=== PATIENT | male | born 1970 | race Two or more races ===

== ENCOUNTER 2020-10-18 15:46 | Inpatient (IN) | payer OTHER ==
[2020-10-18] VITALS (10 sets, daily range): BP systolic 103–159; BP diastolic 72–106
[~2020-10-18] VITALS: Ht 175.3 cm; Wt 82.1 kg
--- NOTE | 2020-10-18 15:51 | NUR ---
Nurses note Pt comes to the ED with Difficult breathing, using abdominal muscles. Pt report no pass HX. Pt O2 45% in by monitor. Non Rebrether mask place, pt O2 not getting better, provider in room. [address] one in Lt arm and Rt upper arm. Lab samples taken and sent to lab.
[2020-10-18] MEDS ORDERED: Azithromycin 500 MG in NS 275 ML IV ONE (16:00)
[2020-10-18] MEDS ORDERED: cefTRIAXone 1 GM in NS 55 ML IVPB ONE (16:00)
[2020-10-18] MEDS ORDERED: dexAMETHasone 10mg/ml Inj IV ONE (16:00)
--- NOTE | 2020-10-18 16:07 | Emergency Room Report ---
History of Present Illness General Chief Complaint: Dyspnea/Respdistress Source: Patient Present Illness HPI Disclaimer: Please note that this report is being documented using DRAGON technology. This can lead to erroneous entry secondary to incorrect interpretation by the dictating instrument. HPI: 50-year-old male no reported medical issue presents for evaluation of shortness of breath. States has been getting worse for approximately 1 week. Reports cough that is worse at night. Denies fever or chills. Denies chest pain or palpitations. Denies nausea or vomiting or diarrhea. According to his son his breathing was increasingly labored today brought in for evaluation. No other sick contacts noted. No recent COVID-19 testing. Patient is full code. PMH: Denied PSH: Denied Allergies: Denied Social Hx: Denied Allergies: Coded Allergies: No Known Allergies (Unverified , 10/18/20) COVID-19 Screening Contact w/high risk pt: Yes Experienced COVID-19 symptoms?: Yes COVID-19 Testing performed MANAGER CLINICAL RESEARCH: No Nursing Documentation-PMH Hx Diabetes: Yes Review of Systems All Other Systems: negative except mentioned in HPI Physical Exam Vital Signs Date Time Temp Pulse Resp B/P (MAP) Pulse Ox O2 Delivery O2 Flow Rate FiO2 10/18/20 15:51 120 24 150/80 (103) 78 Non-Rebreather 10.0 General: Awake and alert, arrives in respiratory distress HEENT: NC/AT. EOMI. Cardiovascular: Tachycardic Resp: Tachypnea. Increased work of breathing. Bilateral breath sounds. Abdomen: Abdomen is soft, nondistended. Nontender Skin: Intact. No abrasions, laceration or rash over the exposed skin MSK: Normal tone and bulk. Moving all extremities. No obvious deformity. Neuro: Awake and alert. Mentating appropriately. Procedures Critical Care Time Critical Care Time Total critical care time: Approximately 120 minutes Due to a high probability of clinically significant, life threatening deterioration, the patient required the highest level of preparedness to intervene emergently and I personally spent this critical care time directly and personally managing the patient. This critical care time included obtaining a history, examining the patient, pulse oximetry, ordering and reviewing studies, ordering treatments, evaluating response to treatment and updating management plan as needed, frequent reassessment and discussion with other providers as well as arranging for ultimate disposition. This critical to care time was performed to assess and manage the high probability of life-threatening deterioration that could result in multiorgan failure. This critical care time is separate from the separately billable procedures and treating other patients. Cardioversion Cardioversion: Consent: Emergent Indication: V-TACH Response: Sinus Attempts: One Patient Tolerated: Well Complications: None Central Line Central Line : Consent: Emergent Central Line Lumen: triple Maximal Sterile Barrier Tech: yes cap, yes mask, yes sterile gown, yes sterile gloves, yes large sterile sheet, yes hand hygiene, yes chlorhexidine prep Central Line Postion: femoral (R) US Guided Line?: Yes Vessel visualized with U/S: Right Femoral Vein Ultrasound Findings: Collapsible Vessel, Vessel Patent, Visualize vessel puncture Complications: none Central Line Post Position: sutured, good blood return Attempts: One Patient Tolerated: Well Complications: None CPR/Code Blue CPR/Code Blue Narrative Patient bradycardic in PEA. 1 round chest compressions. 1 mg epinephrine and 1 amp of bicarb given. ROSC achieved at first pulse check. Sinus tachycardic rhythm. Intubation Intubation : Consent: Emergent Intubation Method: orotracheal Tube Size (cm): 7.5 Medications: Etomidate, Rocuronium Breath Sounds after Intubation: equal Intubation Complications: no complications Attempts: One Patient Tolerated: Well Complications: None Medical Decision Making Diagnostic Impression: Primary Impression: Pneumonia Additional Impressions: Suspected 2019 novel coronavirus infection Respiratory failure Cardiopulmonary arrest Ventricular fibrillation ER Course 50-year-old male presents for evaluation of shortness of breath. Arrives in respiratory distress hypoxic on room air and nonrebreather. Concern for pneumonia, COVID-19 infection, pneumothorax, PE among others. Patient transition to BiPAP oxygenation improved into the mid 90s. Chest x-ray shows bilateral infiltrates. Concern for COVID-19. Cultures, broad labs drawn. Patient treated empirically with antibiotics and dexamethasone. Respiratory rate and work of breathing worsening. Patient saturating mid 80s. Patient intubated for respiratory failure. Patient went bradycardic during intubation without palpable pulse. CODE BLUE was called. Patient given 1 round of chest compressions and 1 round of epinephrine after which there was a return of spontaneous circulation. X-ray shows endotracheal tube above the kenzie. Admitted to ICU to assigned hospitalist for healthcare plan Dr. Garcia. Family updated. Patient continues to desaturate while on ventilator requiring intermittent bag mask ventilation. Blood pressure dropping. Central line placed by me under ultrasound guidance in the right femoral. Patient on Levophed and dopamine. Patient also having twitch-like movements in his extremities. Ativan given and loaded with Keppra for possible seizures. Family updated. Patient with an episode of ventricular fibrillation with rate into the 180s. Defibrillated 200 J x 1 return to sinus tachycardia. Given amiodarone. Patient transferred to ICU. Sepsis reevaluation: I, Dr. Delonte Woodruff, reevaluated the patient Capillary refill: Less than 2 seconds BP: 118/88 Heart rate: 150s Respiratory rate: 30s Initial Lactate: 7.2 Repeat Lactate: 5.4 Pressors: Levophed, dopamine Laboratory Tests Test 10/18/20 15:54 10/18/20 16:00 Arterial Blood pH 7.363 (7.350-7.450) Arterial Blood Partial Pressure CO2 27.1 mmHg (35.0-45.0) L Arterial Blood Partial Pressure O2 62.3 mmHg (75.0-100.0) L Arterial Blood HCO3 15.1 mmol/L (22.0-26.0) *L Arterial Blood Oxygen Saturation 89.2 % (95-100) *L Arterial Blood Base Excess -8.8 (-2-2) L Yakov Test Positive White Blood Count 12.4 K/UL (4.8-10.8) H Red Blood Count 5.03 M/UL (4.70-6.10) Hemoglobin 14.1 G/DL (14.2-18.0) L Hematocrit 44.9 % (42.0-52.0) Mean Corpuscular Volume 89 FL (80-99) Mean Corpuscular Hemoglobin 28.1 PG (27.0-31.0) Mean Corpuscular Hemoglobin Concent 31.4 G/DL (32.0-36.0) L Red Cell Distribution Width 12.4 % (11.6-14.8) Platelet Count 536 K/UL (150-450) H Mean Platelet Volume 7.0 FL (6.5-10.1) Neutrophils (%) (Auto) 88.4 % (45.0-75.0) H Lymphocytes (%) (Auto) 6.6 % (20.0-45.0) L Monocytes (%) (Auto) 4.5 % (1.0-10.0) Eosinophils (%) (Auto) 0.1 % (0.0-3.0) Basophils (%) (Auto) 0.5 % (0.0-2.0) Prothrombin Time 13.8 SEC (9.30-11.50) H Prothrombin Time INR 1.3 (0.9-1.1) H Activated Partial Thromboplast Time 28 SEC (23-33) D-Dimer 2.41 mg/L FEU (0.00-0.49) H Sodium Level 126 MMOL/L (136-145) L Potassium Level 5.1 MMOL/L (3.5-5.1) Chloride Level 88 MMOL/L (98-107) L Carbon Dioxide Level 17 MMOL/L (21-32) L Anion Gap 21 mmol/L (5-15) H Blood Urea Nitrogen 25 mg/dL (7-18) H Creatinine 1.4 MG/DL (0.55-1.30) H Estimated Glomerular Filtration Rate 53.4 mL/min (>60) Glucose Level 425 MG/DL (74-106) H Lactic Acid Level Pending Calcium Level 8.8 MG/DL (8.5-10.1) Phosphorus Level 5.1 MG/DL (2.5-4.9) H Magnesium Level 1.9 MG/DL (1.8-2.4) Ferritin 726 NG/ML (8-388) H Total Bilirubin 1.2 MG/DL (0.2-1.0) H Direct Bilirubin 0.5 MG/DL (0.0-0.3) H Aspartate Amino Transferase (AST) 31 U/L (15-37) Alanine Aminotransferase (ALT) 15 U/L (12-78) Alkaline Phosphatase 132 U/L (46-116) H Lactate Dehydrogenase 438 U/L (81-234) H Total Creatine Kinase 110 U/L (26-308) Creatine Kinase MB 4.2 NG/ML (0.0-3.6) H Creatine Kinase MB Relative Index 3.8 Troponin I 0.098 ng/mL (0.000-0.056) C-Reactive Protein, Quantitative Pending Pro-B-Type Natriuretic Peptide 74177 pg/mL (0-125) H Total Protein 7.2 G/DL (6.4-8.2) Albumin 2.4 G/DL (3.4-5.0) L Globulin 4.8 g/dL Albumin/Globulin Ratio 0.5 (1.0-2.7) L Lipase 172 U/L (73-393) EKG Diagnostic Results Troponin ordered: Yes When was troponin ordered?: Oct 18, 2020 EKG Time: 15:58 Rate: tachycardiac Rhythm: NSR ST Segments: no acute changes Other Impression Sinus tachycardia, normal axis, normal intervals, no ST segment changes. Rhythm Strip Diag. Results Rhythm Strip Time: 15:58 EP Interpretation: yes Rate: 120s Rhythm: NSR, no PVC's, no ectopy Chest X-Ray Diagnostic Results Chest X-Ray Diagnostic Results : Chest X-Ray Ordered: Yes # of Views/Limited/Complete: 1 View Indication: Shortness of Breath EP Interpretation: Yes PA Xray: Interpretation reviewed Interpretation: no effusion, no pneumothorax, other - Bilateral infiltrates concerning for pneumonia Impression: Other - Bilateral pneumonia Electronically Signed by: Electronically signed by Dr. Delonte Woodruff MD Other X-Ray Diagnostic Results Other X-Ray Diagnostic Results : X-Ray ordered: Post intubation chest x-ray # of Views/Limited Vs Complete: 1 View Indication: Pain EP Interpretation: Yes Interpretation: other - Endotracheal tube above the kenzie. Bilateral airspace disease, NG tube in place Impression: Other - ET tube in appropriate position above kenzie, NG tube in place Electronically Signed by: Electronically signed by Dr. Delonte Woodruff MD Last Vital Signs Date Time Temp Pulse Resp B/P (MAP) Pulse Ox O2 Delivery O2 Flow Rate FiO2 10/18/20 15:51 120 24 150/80 (103) 78 Non-Rebreather 10.0 Disposition: ADMITTED INPATIENT Condition: Critical Scripts No Active Prescriptions or Reported Meds Delonte Woodruff MD Oct 18, 2020 16:07
--- NOTE | 2020-10-18 16:21 | Diagnostic Imaging Report ---
EXAM: XR Chest, 1 View CLINICAL HISTORY: SOB TECHNIQUE: Frontal view of the chest. COMPARISON: 09/10/2007. FINDINGS: Lungs: Diffuse bilateral perihilar airspace opacities consistent with pneumonia. Pleural space: Unremarkable. No pneumothorax. Heart: Cardiomegaly. Mediastinum: Unremarkable. Bones/joints: Degenerative disease of bilateral shoulders. IMPRESSION: Diffuse bilateral pneumonia. Differential diagnosis includes pulmonary edema. Clinical correlation recommended.
[2020-10-18 16:46] LABS: HEMATOCRIT 44.9 % (42.0-52.0); HEMOGLOBIN 14.1 G/DL (14.2-18.0); MEAN CORPUSCULAR VOLUME 89 FL (80-99); PLATELET COUNT 536 K/UL (150-450); RED BLOOD COUNT 5.03 M/UL (4.70-6.10); RED CELL DISTRIBUTION WIDTH 12.4 % (11.6-14.8); WHITE BLOOD COUNT 12.4 K/UL (4.8-10.8)
[2020-10-18 16:47] LABS: LYMPHOCYTES % (AUTO) 6.6 % (20.0-45.0); MONOCYTES % (AUTO) 4.5 % (1.0-10.0); NEUTROPHILS % (AUTO) 88.4 % (45.0-75.0)
[2020-10-18 16:48] LABS: BASOPHILS % (AUTO) 0.5 % (0.0-2.0); EOSINOPHILS % (AUTO) 0.1 % (0.0-3.0)
[2020-10-18 16:53] LABS: INR 1.3 (0.9-1.1)
--- NOTE | 2020-10-18 16:55 | NUR ---
CPR started see code blue sheet
[2020-10-18 17:02] LABS: CALCIUM 8.8 MG/DL (8.5-10.1); CREATININE 1.4 MG/DL (0.55-1.30); POTASSIUM 5.1 MMOL/L (3.5-5.1)
[2020-10-18 17:21] LABS: ALBUMIN 2.4 G/DL (3.4-5.0); ALBUMIN/GLOBULIN RATIO 0.5 (1.0-2.7); BILIRUBIN,TOTAL 1.2 MG/DL (0.2-1.0); CKMB 4.2 NG/ML (0.0-3.6); PHOSPHORUS 5.1 MG/DL (2.5-4.9)
[2020-10-18 17:26] LABS: BILIRUBIN,DIRECT 0.5 MG/DL (0.0-0.3)
--- NOTE | 2020-10-18 18:05 | Cardiac Electrophysiology PN ---
Subjective Subjective [id number] Objective Last 24 Hour Vital Signs Date Time Temp Pulse Resp B/P (MAP) Pulse Ox O2 Delivery O2 Flow Rate FiO2 10/18/20 17:38 122 25 100 10/18/20 16:29 99.0 123 57 130/88 90 Bi-pap 10/18/20 16:29 120 60 Bi-pap 10/18/20 16:13 122 53 95 100 10/18/20 15:51 120 24 150/80 (103) 78 Non-Rebreather 10.0 Laboratory Tests Test 10/18/20 15:54 10/18/20 16:00 Arterial Blood pH 7.363 (7.350-7.450) Arterial Blood Partial Pressure CO2 27.1 mmHg (35.0-45.0) L Arterial Blood Partial Pressure O2 62.3 mmHg (75.0-100.0) L Arterial Blood HCO3 15.1 mmol/L (22.0-26.0) *L Arterial Blood Oxygen Saturation 89.2 % (95-100) *L Arterial Blood Base Excess -8.8 (-2-2) L Yakov Test Positive White Blood Count 12.4 K/UL (4.8-10.8) H Red Blood Count 5.03 M/UL (4.70-6.10) Hemoglobin 14.1 G/DL (14.2-18.0) L Hematocrit 44.9 % (42.0-52.0) Mean Corpuscular Volume 89 FL (80-99) Mean Corpuscular Hemoglobin 28.1 PG (27.0-31.0) Mean Corpuscular Hemoglobin Concent 31.4 G/DL (32.0-36.0) L Red Cell Distribution Width 12.4 % (11.6-14.8) Platelet Count 536 K/UL (150-450) H Mean Platelet Volume 7.0 FL (6.5-10.1) Neutrophils (%) (Auto) 88.4 % (45.0-75.0) H Lymphocytes (%) (Auto) 6.6 % (20.0-45.0) L Monocytes (%) (Auto) 4.5 % (1.0-10.0) Eosinophils (%) (Auto) 0.1 % (0.0-3.0) Basophils (%) (Auto) 0.5 % (0.0-2.0) Prothrombin Time 13.8 SEC (9.30-11.50) H Prothromb Time International Ratio 1.3 (0.9-1.1) H Activated Partial Thromboplast Time 28 SEC (23-33) D-Dimer 2.41 mg/L FEU (0.00-0.49) H Sodium Level 126 MMOL/L (136-145) L Potassium Level 5.1 MMOL/L (3.5-5.1) Chloride Level 88 MMOL/L (98-107) L Carbon Dioxide Level 17 MMOL/L (21-32) L Anion Gap 21 mmol/L (5-15) H Blood Urea Nitrogen 25 mg/dL (7-18) H Creatinine 1.4 MG/DL (0.55-1.30) H Estimat Glomerular Filtration Rate 53.4 mL/min (>60) Glucose Level 425 MG/DL (74-106) H Lactic Acid Level 7.20 mmol/L (0.4-2.0) H Calcium Level 8.8 MG/DL (8.5-10.1) Phosphorus Level 5.1 MG/DL (2.5-4.9) H Magnesium Level 1.9 MG/DL (1.8-2.4) Ferritin 726 NG/ML (8-388) H Total Bilirubin 1.2 MG/DL (0.2-1.0) H Direct Bilirubin 0.5 MG/DL (0.0-0.3) H Aspartate Amino Transf (AST/SGOT) 31 U/L (15-37) Alanine Aminotransferase (ALT/SGPT) 15 U/L (12-78) Alkaline Phosphatase 132 U/L (46-116) H Lactate Dehydrogenase 438 U/L (81-234) H Total Creatine Kinase 110 U/L (26-308) Creatine Kinase MB 4.2 NG/ML (0.0-3.6) H Creatine Kinase MB Relative Index 3.8 Troponin I 0.098 ng/mL (0.000-0.056) C-Reactive Protein, Quantitative 20.2 mg/dL (0.00-0.90) H Pro-B-Type Natriuretic Peptide 23124 pg/mL (0-125) H Total Protein 7.2 G/DL (6.4-8.2) Albumin 2.4 G/DL (3.4-5.0) L Globulin 4.8 g/dL Albumin/Globulin Ratio 0.5 (1.0-2.7) L Lipase 172 U/L (73-393) Arvin Barraza MD Oct 18, 2020 18:05
--- NOTE | 2020-10-18 18:09 | Diagnostic Imaging Report ---
EXAM: XR Chest, 1 View CLINICAL HISTORY: POST-OP TECHNIQUE: Frontal view of the chest. COMPARISON: 10/18/2020. FINDINGS: Limitations: Exam is limited due to decreased penetration technique. Lungs: Diffuse bilateral airspace opacities consistent with pneumonia. Pleural space: Unremarkable. No pneumothorax. Heart: Unremarkable. No cardiomegaly. Mediastinum: Unremarkable. Bones/joints: Unremarkable. Tubes, lines and devices: The endotracheal tube has the tip 4 cm above kenzie. The nasogastric tube has the tip at approximate gastric fundus. Defibrillator patches obscured the left lung base. IMPRESSION: 1. Lines and tubes as described. 2. Diffuse bilateral pneumonia, unchanged in the interval.
[2020-10-18] MEDS ORDERED: DOPamine 400mg/250ml 250 ML IV SCH (18:22)
--- NOTE | 2020-10-18 18:36 | NUR ---
ED Nurse Note: pt in critical condition. O2 sat 44 RA on arrival. pt immediately bedded with & RN at bedside. pt placed on continuous cardiac and O2 monitor. with BiPAP 80% O2 sat. 1654: pt intubated. pt in asystole. opal petty called (see code sheet). Radha Elias RN, [employer] materials engineering technician, RT tech at bedside. CPR compressions started. 1 atropine, 1 epi given. compressions in progress. pt desat to 57%. bagging pt to increase O2. pt intubated with 7.5, 22 at lip. pulse check. pt in sinus tach. 1654: vitals: 167 HR, 41 RR with bagging, O2 sat reading. 1L NS hung per MD verbal order. 1657: 1 amp bicarb in R arm. vitals: 163 HR, 45 RR, 98% O2 sat bagging. 1700: vitals: 153 HR, 33 RR, 98% O2, 159/106 BP. EKG performed: pt rhythm sinus tach. pt placed on ventilator. 170: vitals: 144 HR, 26 RR, desat to 86% O2, 152/95 BP. switched to manual bagging. 1705: vitals: 139 HR, 37 RR, 152/95 BP, 99% O2. 1707: NG tube inserted, R nare, 55cm. 171: vitals: 124 HR, 44 RR, 116/86 BP/ Addendum: 10/18/20 at 1906 by [facility] ED Nurse Note: pt in critical condition. O2 sat 44 RA on arrival. pt immediately bedded with MD & RN at bedside. pt placed on continuous cardiac and O2 monitor. RT at bedside. pt placed on BiPAP 80% O2 sat. RR 50's. crash cart & resuscitation medications at bedside. 1640: pt intubated. 1650: pt pulseless. code blue called (see code sheet). Radha Elias RN, [facility] tech, RT tech at bedside. CPR compressions started. 1655: 1 atropine, 1 epi given. compressions in progress. pt desat to 57%. bagging pt to increase O2. pt intubated with 7.5, 22 at lip. CPR pause. pulse check. pt in sinus tach. 1655: vitals: 167 HR, 41 RR with bagging, O2 sat reading. 1L NS hung per MD verbal order. 1658: 1 amp bicarb in R arm. vitals: 163 HR, 45 RR, 98% O2 sat bagging. 1701: vitals: 153 HR, 33 RR, 98% O2, 159/106 BP. EKG performed: pt rhythm sinus tach. pt placed on ventilator with MD & RT at bedside. 1703: vitals: 144 HR, 26 RR, desat to 86% O2, 152/95 BP. switched to manual bagging. MD aware. 1705: vitals: 139 HR, 37 RR, 152/95 BP, 99% O2. switched to ventilator. 1707: NG tube inserted, R nare, 55cm. 1711: vitals: 124 HR, 44 RR, 116/86 BP, O2 desat 60% on vent. MD informed. pt switched to bagging to improve O2. O2 sat increased to 97%. switched to ventilator. 1713: 2L NS bolus added per MD verbal order. 1719: pt O2 sat decreased to 71% on vent. begin pt bagging. HR 117 sinus tachy. 103/72 BP. MD aware. unable to sustain O2 sat on vent. MD aware. MD at bedside. 1720: 116 HR, 44 RR, 78% O2 with manual bagging, 97/63 BP. bagging pt. MD at bedside. 1729: adjusted tube after chest XR per MD order. O2 sat improved. HR 125, 20RR, O2 99% on vent, 123/88 BP. 1740: 80 lasix given R arm per MD verbal order. vitals: 129/84 BP, 124 HR, 41 RR, 92% O2 on vent. 1758: vent settings adjusted to improve pt O2 sat. TV 500, Rate 30, O2 100% peep 12. vitals 125 HR, O2 92%. RR 30. 116/88 BP. 2 STEM SHAPER, certified pest control technician, ER MD at bedside with RT continuously. 180: bicarb pushed R arm per MD verbal order. HR 121, 30RR, 93% O2 on vent, 96/77. pt desat O2 to 70's. manual bagging to improve pt O2, MD calle aware, attempting to contact family to notify of pt condition. pt unable to sustain O2 sat with ventilator adjustments. RT at bedside continuously and MD aware. 181: 119 HR, 96/57 BP, 83% O2 pt bagged. 182: 115 HR, 66 RR, 81% O2 with bagging, 82/36 BP. 182: pt son at bedside. informed of critical status of pt. ER MD & temperer at bedside with RT, materials engineering technician, 3 STEM SHAPER. ED MD verbal order for dopamine. dopamine initiated. 183: 124 HR, 107/84 HR, O2 90%. pt continuously desatting when attempting to place on vent. pt bagged continuously to improve O2 sat. 184: 109/72 BP. 124 HR, 89% O2. vent settings adjusted. TV 500, Rate 30, Peep 15, O2 100%. 1848: 74/18 BP. HR 113, O2 81% desat on vent, switched to manual bagging. 185: Norepi started at 10 mcg/min per MD verbal order. 80/52 BP. 116 HR. 79% O2. 31 RR. 1912: ativan pushed R arm due to pt having seizure activity. MD at bedside, RT Arnav at bedside, RN at bedside. HR 120, 108/77 BP, 32 RR, 82% O2 on vent. 1919: RN shift change. MD calle at bedside. pt still on continuous cardiac and O2 monitor. RT Arnav at bedside. day & night STEM SHAPER assisting pt. 1939: central line placed R femoral by MD calle with RN at bedside. 1949: pt started seizure activity again. MD notified, verbal order for another 2 ativan. pt started on keppra bolus per MD verbal order. RN & RT at bedside. 2004: vitals: 154 HR, 32 RR, 89% with adjusted vent settings, BP 120/80, 96.4 temporal. vent settings adjusted: 100% O2, TV 450, Peep 15, rate 40. 2035: vitals: 153HR, 128/87 BP, 90% O2 sat, 27 RR. pt still on continuous cardiac & O2 monitor.
[2020-10-18] MEDS ORDERED: Levophed 4mg/4mL Inj IV ONE (18:55)
[2020-10-18] MEDS ORDERED: LORazepam Inj 2mg/ml 1ml ONE ×3 (19:13→20:47)
[2020-10-18] MEDS ORDERED: LORazepam Inj 2mg/ml 1ml IV ONE ×2 (19:15→20:00)
[2020-10-18] MEDS ORDERED: LORazepam Inj 2mg/ml 1ml IV SCH (19:30)
--- NOTE | 2020-10-18 19:44 | Consultation ---
DATE OF CONSULTATION: 10/18/2020 CARDIOLOGY CONSULTATION CONSULTING PHYSICIAN: Arvin Barraza MD REFERRING PHYSICIAN: Cory Deal DO REASON FOR CONSULTATION: Respiratory failure and cardiac arrest. HISTORY OF PRESENT ILLNESS: The patient is a 50-year-old gentleman with no prior past medical history, on no reported medication at home, who was brought to the emergency room for evaluation of shortness of breath for one-week duration. The patient apparently has been having cough that has gotten worse at night. The patient did not complain of fever, chills, or chest pain or palpitation. The patient had no recent COVID-19 testing and no other sick contacts. Initially, his blood pressure was 150/80 with pulse of 120, respiration of 24; however, subsequently the patient had bradycardic arrest and PEA and had 1 run of chest compressions as well as 1 mg of epinephrine and 1 amp of bicarb. Return of spontaneous circulation was achieved and the patient was intubated. X-ray showed endotracheal tube above the kenzie. Cardiology consultation was obtained for further evaluation. REVIEW OF SYSTEMS: Cannot be obtained. PAST MEDICAL HISTORY: Negative. FAMILY HISTORY: Noncontributory. SOCIAL HISTORY: He lives at home. No history of alcohol or drug use. PHYSICAL EXAMINATION: VITAL SIGNS: Blood pressure initially was 150/80, pulse of 120, respiration 24. HEAD AND NECK: Shows orally intubated. LUNGS: Coarse rhonchi. CARDIOVASCULAR: Shows tachycardic, S1 and S2 with no gallop. ABDOMEN: Soft. EXTREMITIES: No pitting edema. LABORATORY AND DIAGNOSTIC DATA: Labs show white count of 12.4, hemoglobin of 14.1, hematocrit of 45, and platelet count of 536. Sodium 126, potassium 5.1, BUN of 25, creatinine 1.4. Troponin elevated at 0.9 and BNP is 13,000. LDH is 438. Lactate is 7.2. His chest x-ray showed diffuse bilateral pneumonia and cannot rule out pulmonary edema. ASSESSMENT AND PLAN: 1. Severe shortness of breath. Chest x-ray is suggestive of COVID even though cannot exclude underlying congestive heart failure, especially that the BNP is 13,000. The patient is also hyponatremic suggestive of volume overload; however, the patient also had lactic acidosis of 7.2 and was treated with IV antibiotics. Echocardiogram will be ordered to evaluate for cardiomyopathy. 2. Troponin elevation. It could be due to stress of sepsis and mild renal failure. Creatinine is 1.4. 3. Hyponatremia, likely dilutional. 4. Respiratory failure, on the ventilator. The patient is status post bradycardic arrest and was resuscitated. The first troponin is mildly elevated. We will completely rule out AL protocol. Repeat EKG and echocardiogram for further evaluation. Thank you very much for allowing me to participate in the care of this patient. Please do not hesitate to contact me for any questions regarding my evaluation. The case was discussed with the emergency room physician as well. Arvin Barraza M.D. DR: Lenin JOB#: [id number] CC:
[2020-10-18] MEDS ORDERED: levETIRAcetam 1,000mg/NS100ml 100 ML IVPB ONE (20:00)
[2020-10-18 20:03] LABS: APPEARANCE,URINE CLOUDY; BILIRUBIN, URINE NEGATIVE (NEGATIVE); COLOR,URINE PALE YELLOW; GLUCOSE, URINE (UA) 4+ (NEGATIVE); KETONES,URINE 1+ (NEGATIVE); LEUKOCYTE ESTERASE ,URINE NEGATIVE (NEGATIVE); NITRITE,URINE NEGATIVE (NEGATIVE); PH,URINE 5 (4.5-8.0); PROTEIN,URINE 3+ (NEGATIVE); UROBILINOGEN,URINE 1 MG/DL (0.0-1.0)
--- NOTE | 2020-10-18 20:30 | NUR ---
ED Nurse Note: rcvd pt from primary nurse. pt is vented rate 21, volume 150, 100%, peep 15. pt has levo @ 15, and dopa @ 10. Addendum: 10/18/20 at 2329 by PRAKASH Amendment undone in EDM - 10/19/20 at 0033 by PRAKASH ED Nurse Note: rcvd pt from primary nurse. pt is vented rate 21, volume 150, 100%, peep 15. pt has levo @ 15, and dopa @ 10. pt sat is 89% on vent. pts pupils unequal/unreactive. left pupil 2mm, right 4mm. 1939: Assisted MD in placing central line in right femoral. pt cathed with 50mL urine. 2010: 96.4 F temporal, 120/89, 89% on vent, 32 RR, 154HR. Pt on levo, dopa and vent at rates above. 2042: 2 Amps bicarb given per MD order. 128/87, 90% vent, 29 RR, 153 HR 2044: Pt started to seize. 2mg Ativan given per MD order. 140/89, 156 HR, 36 RR, 87% vent. Suctioned for improvement 2099: 128/82, 153 HR, 34 RR, 81% vented. Suctioned again, MD ordered Lasix, 40mg Lasix given per MD order. Pt currently at 200mL of urine output. 2103: pt started to seize again. 2mg Ativan given per MD order. 130/90, RR 36, O2 87%, 153 HR 2114: 134/93, 85%, RR 36, 154 HR, 400mL urine output. 2118: Pt O2 sat @ 43% on vent, suction attempted 3 times. pt continued to desat. Bagged per MD to hyperventilate. Bagged by JEFF Kwan. 139/83, 45% vented, 149 HR, 37RR 2126: pt went into vfib with a run of 92PVC, Dr. Borrego at bedside and shocked pt at 200J. 2129: 300mg Amiodarone given per MD order. 145/99, RR 39, 93% bagged 142 HR 2134: 109/75, HR 126, 42RR, 70% bagged- EMT/MD trying to hyperventilate pt to get O2 sat increased. 550mL urine output. 2140: Pt actively seizing, 162 HR, 106/77, 40RR, 75% bagged. Ativan 2mg given per MD order. 2144: 112/90, 132 HR, 43RR, 72% bagged, transferring to ICU per MD. with RT and EMT. Bedside report given to Hayes. Addendum: 10/19/20 at 0024 by PRAKASH ED Nurse Note: rcvd pt from primary nurse who stayed after to document and assist. pt is vented rate 21, volume 150, 100%, peep 15. pt has levo @ 15, and dopa @ 10. pt sat is 89% on vent. pts pupils unequal/unreactive. left pupil 2mm, right 4mm. 2029: 96.4 F temporal, 120/89, 89% on vent, 32 RR, 154HR. Pt on levo, dopa and vent at rates above. 2042: 2 Amps bicarb given per MD order. 128/87, 90% vent, 29 RR, 153 HR 2044: Pt started to seize. 2mg Ativan given per MD order pulled via primary RN and scanned. 140/89, 156 HR, 36 RR, 87% vent. Suctioned for improvement 2099: 128/82, 153 HR, 34 RR, 81% vented. Suctioned again, MD ordered Lasix, pulled and scanned via primary nurse. 40mg Lasix given by TABATHA Myles per MD order. Pt currently at 200mL of urine output. 2103: pt started to seize again. 2mg Ativan given per MD order. Pulled via TABATHA Myles and administered. 130/90, RR 36, O2 87%, 153 HR. 2114: 134/93, 85%, RR 36, 154 HR, 400mL urine output. 2118: Pt O2 sat @ 43% on vent, suction attempted 3 times. pt continued to desat. Bagged per MD to hyperventilate. Bagged by JEFF Kwan. 139/83, 45% vented, 149 HR, 37RR 2126: pt went into vfib with a run of 92PVC, Dr. Borrego at bedside and shocked pt at 200J. 2129: 300mg Amiodarone given per MD order. Pulled from code cart, administered per TABATHA Kelly. 145/99, RR 39, 93% bagged 142 HR 2134: 109/75, HR 126, 42RR, 70% bagged- EMT/MD trying to hyperventilate pt to get O2 sat increased. 550mL urine output. 2140: Pt actively seizing, 162 HR, 106/77, 40RR, 75% bagged. Ativan 2mg given per MD order. Pulled via TABATHA Myles, given by TABATHA Myles. 2144: 112/90, 132 HR, 43RR, 72% bagged, transferring to ICU per MD. with RT and EMT. Bedside report given to Hayes.
[2020-10-18] MEDS ORDERED: Sodium Bicarbonate 50ml Carp ONE (20:44)
[2020-10-18] MEDS ORDERED: Sodium Bicarbonate 50ml Carp IV ONE (20:45)
--- NOTE | 2020-10-18 20:47 | NUR ---
ED Nurse Note: pt seizing again. informed, override ativan in pyxis per MD verbal order. ativan given by Shameka MAYS.
--- NOTE | 2020-10-18 21:46 | NUR ---
TRANSFER TO FLOOR: Patient transferred to ICU as ordered, per ED MD. Report given to Hayes at bedside. Belongings given to sonEden. Eden informed of transfer. [phone]
[2020-10-18] MEDS ORDERED: Amiodarone 150mg/3ml Amp IVP ONE (22:00)
[2020-10-18] MEDS ORDERED: D5NS 1,000 ML IV SCH (22:30)
[2020-10-18] MEDS: propofoL 1,000mg/100ml 100 ML IV SCH (22:47)
[2020-10-19] VITALS (34 sets, daily range): BP systolic 41–139; BP diastolic 16–98
[2020-10-19] MEDS ORDERED: NovoLOG Insulin Flexpen SUBQ SCH
--- NOTE | 2020-10-19 00:34 | NUR ---
ED Nurse Note: spoke with charge Daren. Told him I pulled 2 ativan for verbal standing orders of MD for seizing pt but didnt scan them and wasnt sure if primary nurses had scanned them in and he stated to just document. understood.
--- NOTE | 2020-10-19 01:30 | NUR ---
pt coded, vtach. 2 rounds of cpr. 2 epi given. pt achieved rosc. MD robles aware. Pt maxed out on dopamine and levophed gtt. Blood sugar 532. MD aware, confirmed with MD. No new orders given. Pads and cpr board remain in place. Family called and notified. Will continue to monitor.
--- NOTE | 2020-10-19 02:05 | NUR ---
Pt coded again. 1 round of cpr done, 1 epi, pt achieved rosc. Son called, educated on code status. Son made pt DNR. MD robles aware. pt currently saturating 70%. Maxed out on pressor support. No new orders given. Will continue to monitor.
--- NOTE | 2020-10-19 03:00 | NUR ---
blood pressure soft. Sinus tach in monitor. O2 sat wnl. Blood sugars elevated. Fluid bolus given. Will continue to monitor.
--- NOTE | 2020-10-19 03:29 | Emergency Room Report ---
History of Present Illness General Chief Complaint: Dyspnea/Respdistress Source: Family Member Present Illness HPI Patient was admitted to the hospital for respiratory failure and cardiac arrest secondary to Covid pneumonia. He coded a couple times in the ER. When he was in the ICU he also coded a couple times. Both there was a spontaneous pulse after epinephrine. I responded to code both. Please see nursing note for list of medication given and time given. Allergies: Coded Allergies: No Known Allergies (Unverified , 10/18/20) COVID-19 Screening Contact w/high risk pt: No Experienced COVID-19 symptoms?: No COVID-19 Testing performed FLOW WORKER: No Nursing Documentation-PM Past Medical History Deferred: Patient Unconscious Past Medical History: No Stated History Hx Cardiac Problems: No Hx Diabetes: Yes Hx Cancer: No Hx Gastrointestinal Problems: No Hx Neurological Problems: No Physical Exam Vital Signs Date Time Temp Pulse Resp B/P (MAP) Pulse Ox O2 Delivery O2 Flow Rate FiO2 10/18/20 15:51 120 24 150/80 (103) 78 Non-Rebreather 10.0 10/18/20 16:13 100 10/18/20 16:29 99.0 Procedures CPR/Code Blue CPR/Code Blue Narrative Patient was admitted for cardiac arrest secondary to sepsis from Covid pneumonia. Patient coded in the ICU. I responded to CODE BLUE. On first code, he became pulseless. CPR was in progress. Patient received a total of 2 rounds of epinephrine and had return of spontaneous contraction. Shortly afterward, he coded again. He was in V. tach per nursing staff. He received a dose of epinephrine and bicarb and had return of spontaneous contraction. Condition critical and prognosis poor. Medical Decision Making Diagnostic Impression: Primary Impression: Pneumonia Additional Impressions: Suspected 2019 novel coronavirus infection Cardiopulmonary arrest Ventricular fibrillation Respiratory failure Last Vital Signs Date Time Temp Pulse Resp B/P (MAP) Pulse Ox O2 Delivery O2 Flow Rate FiO2 10/19/20 02:00 118 36 84/60 (68) 67 10/19/20 00:00 100 10/19/20 00:00 Endotracheal Tube 10/19/20 00:00 98.0 10/18/20 21:46 15.0 Disposition: ADMITTED INPATIENT Condition: Critical Scripts No Active Prescriptions or Reported Meds Referrals: [facility],REFERRING (PCP) Edgardo Gonzalez MD Oct 19, 2020 03:28
[2020-10-19] MEDS ORDERED: Phenylephrine 50 MG in D5W 245 ML IV SCH (03:45)
[2020-10-19] MEDS: propofoL 1,000mg/100ml 100 ML IV SCH (04:59)
--- NOTE | 2020-10-19 06:17 | NUR ---
CASE MANAGEMENT:REVIEW 50 YR OLD MALE PRESENTED TO ER CC: SOB WITH SATS OF 50% SI: COVID PNEUMONIA. VFIB. RESPIRATORY FAILURE CARDIOPULMONARY ARREST 99.0 120 24 150/80 78% ON 10L/NRB WBC+12.4 ANION GAP+21 BUN+25 GLUCOSE+425 BNP+52206 TROPONIN(+) 0.098 PH-7.15 PCO2+51.9 PO2-72.3 HCO3+15.1 IS: INTUBATED IV ROCEPHIN AZITHROMYCIN IV DECADRON 2L NS BOLUS IV LASIX IV AMIODARONE : TO ICU DCP: FROM HOME
[2020-10-19 06:27] LABS: HEMATOCRIT 45.2 % (42.0-52.0); HEMOGLOBIN 13.2 G/DL (14.2-18.0); MEAN CORPUSCULAR VOLUME 95 FL (80-99); PLATELET COUNT 404 K/UL (150-450); RED BLOOD COUNT 4.75 M/UL (4.70-6.10); RED CELL DISTRIBUTION WIDTH 13.3 % (11.6-14.8); WHITE BLOOD COUNT 16.4 K/UL (4.8-10.8)
--- NOTE | 2020-10-19 06:58 | NUR ---
Pt went PEA. No pulse, hypotensive. Pt was maxed on levo, josse, and dopamine gtt. pronounced time of 0616. Family notified. [facility] called, spoke with jose ortiz ref #[id number].
[2020-10-19 07:04] LABS: CALCIUM 7.4 MG/DL (8.5-10.1); CREATININE 1.8 MG/DL (0.55-1.30)
[2020-10-19 07:14] LABS: POTASSIUM 6.1 MMOL/L (3.5-5.1)
--- NOTE | 2020-10-19 07:31 | History & Physical ---
History and Physical History & Physicial HISTORY OF PRESENT ILLNESS: The patient is a 50-year-old gentleman with no prior past medical history, on no reported medication at home, who was brought to the emergency room for evaluation of shortness of breath for one-week duration. The patient apparently has been having cough that has gotten worse at night. The patient did not complain of fever, chills, or chest pain or palpitation. The patient had no recent COVID-19 testing and no other sick contacts. Initially, his blood pressure was 150/80 with pulse of 120, respiration of 24; however, subsequently the patient had bradycardic arrest and PEA and had 1 run of chest compressions as well as 1 mg of epinephrine and 1 amp of bicarb. Return of spontaneous circulation was achieved and the patient was intubated. X-ray showed endotracheal tube above the kenzie. Patient coded multiple times in ER as well as ICU. This AM he is critically ill. REVIEW OF SYSTEMS: Cannot be obtained. PAST MEDICAL HISTORY: Negative. FAMILY HISTORY: Noncontributory. SOCIAL HISTORY: He lives at home. No history of alcohol or drug use. PHYSICAL EXAMINATION: VITAL SIGNS: Blood pressure initially was 150/80, pulse of 120, respiration 24. HEAD AND NECK: Shows orally intubated. LUNGS: Coarse rhonchi. CARDIOVASCULAR: Shows tachycardic, S1 and S2 with no gallop. ABDOMEN: Soft. EXTREMITIES: No pitting edema. LABORATORY AND DIAGNOSTIC DATA: Labs show white count of 12.4, hemoglobin of 14.1, hematocrit of 45, and platelet count of 536. Sodium 126, potassium 5.1, BUN of 25, creatinine 1.4. Troponin elevated at 0.9 and BNP is 13,000. LDH is 438. Lactate is 7.2. His chest x-ray showed diffuse bilateral pneumonia and cannot rule out pulmonary edema. ASSESSMENT AND PLAN: 1. Severe shortness of breath. Chest x-ray is suggestive of COVID even though cannot exclude underlying congestive heart failure, especially that the BNP is 13,000. Echocardiogram will be ordered to evaluate for cardiomyopathy. Cardiology following. 2. Troponin elevation. Requested cardiac evaluation 3. Hyponatremia. 4. Respiratory failure. Continue AC mode; will adjust FiO2 to keep SaO2 >90%; PEEP as needed. 5. Sepsis with lactic acidemia; Pt has received broad spectrum abx. 6. COVID?; continue steroids 7. Shock; on pressors 8. Hyperkalemia; has received bicarbonate. Prognosis poor. Rodrigo Justice Omar Syed MD Oct 19, 2020 07:31
[2020-10-19] MEDS ORDERED: Pantoprazole Inj IVP SCH (09:00)
--- NOTE | 2020-10-19 10:30 | NUR ---
NURSE NOTES: Patient's son/ Clifford Quintana in the unit. And he asked to have patient's aunt/ Marylu Higuera ([phone]) as patient's next of kin. No mortuary arrangements at this time.Record of will be signed by Clifford Quintana. Belongings will be sent to the [facility] with the body.
--- NOTE | 2020-10-19 11:24 | NUR ---
[employer] FAXED
--- NOTE | 2020-10-20 15:10 | Discharge Summary ---
Discharge Summary Discharge Summary _ Date of admission: 10/18/2020 Date of expiration: 10/19/2020 History of Present Illness and Brief Hospital Course Mr. Quintana was a 50-year-old male with no reported medical history who presented to the ED for evaluation of progressively worsening shortness of breath x1 week. Patient reported cough that was worse at night. According to his son, his breathing was increasingly labored on the day of presentation. Patient was hypoxic and in respiratory distress on room air and was placed on nonrebreather. Patient was transitioned to BiPAP and his oxygenation improved into the mid 90s. Chest x-ray revealed bilateral infiltrates. Patient was empirically treated with antibiotics and dexamethasone. Patient was then intubated due to worsening respiratory failure. Patient went bradycardic during intubation without palpable pulse. CODE BLUE was called. Patient was given 1 round of chest compressions and 1 round of epinephrine after which there was a return of spontaneous circulation. Proper placement of endotracheal tube was confirmed with an x-ray. Patient was then admitted to ICU for further management. Patient was found to have an episode of ventricular fibrillation with a rate into the 180s. Patient was defibrillated with 200 J x 1 with subsequent return to sinus tachycardia. Patient was given amiodarone. Chest x-ray was suggestive of COVID-19 even though underlying congestive heart failure could be excluded. Echocardiogram was ordered to evaluate for cardiomyopathy. COVID-19 swab was also sent. Throughout his hospitalization, patient's prognosis remained poor. After multiple episodes of coding, patient's CODE STATUS was switched to DNR per son's request. On 10/19/2020, patient was found to be pulseless and hypotensive. Patient was maxed out on pressors at this time. Patient had coded multiple t imes until this point. Unfortunately, patient was pronounced on 10/19/2020 at 0616. Consultants: Cardiology Dr. Barraza Final diagnoses Hypoxemic respiratory failure, s/p ventilator Troponin elevation Hyponatremia Septic shock Lactic acidosis Hyperkalemia I have been assigned to dictate discharge summary for this account. I was not involved in the patient's management Sanford Sanches Oct 20, 2020 15:10
--- NOTE | 2020-10-21 01:56 | Cardiology Report ---
APPROVED REPORT EKG Measurement Heart [id number] MS [id number] <Conclusion> Sinus tachycardia Otherwise normal ECG
== END 2020-10-19 13:15 | disposition expired | DRG 720 ==
LOC: EMR 16:05 → ICU 18:20 → EDBEDREQ 21:37
PROC: 5A1945Z Respiratory Ventilation, 24-96 Consecutive Hours (ICD-10-PCS; principal; 2020-10-18)
PROC: 5A12012 Performance of Cardiac Output, Single, Manual (ICD-10-PCS; 2020-10-18)
PROC: 0BH17EZ Insertion of Endotracheal Airway into Trachea, Via Natural or Artificial Opening (ICD-10-PCS; 2020-10-18)
PROC: 5A12012 Performance of Cardiac Output, Single, Manual (ICD-10-PCS; 2020-10-19)
DX: A41.9 Sepsis, unspecified organism (principal); J96.01 Acute respiratory failure with hypoxia; I49.01 Ventricular fibrillation; I46.9 Cardiac arrest, cause unspecified; E87.1 Hypo-osmolality and hyponatremia; R65.21 Severe sepsis with septic shock; E87.5 Hyperkalemia; Z66 Do not resuscitate
CPT/HCPCS: 31500; 36415; 71045; 80048; 80053; 81003; 82248; 82550; 82553; 82728; 82803; 82962; 83605; 83615; 83690; 83735; 83880; 84100; 84478; 84484; 85007; 85025; 85379; 85610; 85730; 86140; 87040; 92950; 92960; 93005; 94002; 96361; 96365; 96367; 96375; 96376; 99291; 99292; J1815; J2370; J7030